=== PATIENT | female | born 1995 | race Caucasian/White ===

== ENCOUNTER 2021-09-15 17:25 | Emergency (ER) | payer OTHER, SELFPAY ==
--- NOTE | ~2021-09-15 | XR_ITS ---
EXAMINATION: XR HAND, LEFT CLINICAL INFORMATION: Left thumb pain COMPARISON: None TECHNIQUE: PA, lateral, and oblique views of the left hand. FINDINGS: The bones and soft tissues are normal. No fracture. Alignment is anatomic. Joint spaces are maintained. No erosions or soft tissue calcifications. XR/XR hand LT min 3V IMPRESSION: Normal left hand.
[2021-09-15 17:27] VITALS: BP 122/84; PULSE 82; O2SAT 100
[2021-09-15 17:32] VITALS: BP 132/81; PULSE 75; RESP 18; TEMP 36.8; O2SAT 96; BMI 25.6
[2021-09-15 19:35] VITALS: BP 130/74; PULSE 71; RESP 18; TEMP 36.8
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
== END 2021-09-15 20:16 | disposition home or self-care (01) ==
LOC: HO.ED 19:57
PROVIDERS: Emergency Provider Emergency Medicine
DX: S13.4XXA Sprain of ligaments of cervical spine, initial encounter (principal); S39.012A Strain of muscle, fascia and tendon of lower back, initial encounter; S63.602A Unspecified sprain of left thumb, initial encounter; S60.312A Abrasion of left thumb, initial encounter; T14.8XXA Other injury of unspecified body region, initial encounter; V43.52XA Car driver injured in collision with other type car in traffic accident, initial encounter; Y93.9 Activity, unspecified; Y92.410 Unspecified street and highway as the place of occurrence of the external cause; Y99.9 Unspecified external cause status
CPT/HCPCS: 73130; 99282; 99283